=== PATIENT | male | born 1965 | race Caucasian/White ===

== ENCOUNTER 2017-06-07 09:33 | Inpatient (IN) | payer OTHER ==
[~2017-06-07] VITALS: Ht 188 cm; Wt 106.8 kg
[2017-06-07] MEDS ORDERED: ONDANSETRON INJ 2 MG/ML 2 ML VIAL IV STA (10:07)
[2017-06-07] MEDS ORDERED: SODIUM CHLORIDE 0.9% 1000ML 2,000 ML IV STA (10:07)
[2017-06-07 10:32] LABS: BASO % 0.3 %; BASO ABS # 0.03 K/uL (0-0.2); COMPLETE YES; EOS % 1.2 %; IG% 0.4 %; LYMPH % 7.4 %; LYMPH ABS # 0.66 K/uL (1.2-3.4); MEAN CELL VOLUME 82.6 fL (80-100); MEAN CORPUSCULAR HEMOGLOBIN 28.4 pg (25-34); MEAN CORPUSCULAR HGB CONC 34.3 g/dl (32-36); MEAN PLATELET VOLUME 10.2 fL (7.4-10.4); MONO % 13.2 %; NEUT % 77.5 %; PLATELET COUNT 219 K/uL (130-400); RED BLOOD COUNT 5.57 M/uL (4.7-6.1); WHITE BLOOD COUNT 8.91 K/uL (4.8-10.8)
[2017-06-07 10:48] LABS: CALCIUM 9.2 mg/dl (8.5-10.1); CREATININE 1.1 mg/dl (0.60-1.40); POTASSIUM 3.4 mmol/L (3.5-5.1)
[2017-06-07] MEDS ORDERED: OPTIRAY 320 IV PRN (11:00)
--- NOTE | 2017-06-07 12:09 | DIAGNOSTIC IMAGING REPORT ---
CT OF THE ABDOMEN AND PELVIS WITH CONTRAST CLINICAL HISTORY: Persistent diarrhea and left upper quadrant abdominal pain. COMPARISON STUDY: CT of the abdomen and pelvis October 23, 2011. TECHNIQUE: Following IV administration of 93 mL of Optiray-320, axial images of the abdomen and pelvis were obtained from the lung bases to the proximal femurs. Images were reviewed in the axial, sagittal, and coronal planes. IV contrast was administered without complication. A dose lowering technique was utilized adhering to the principles of ALARA. CT DOSE: 1036.11 mGycm FINDINGS: The liver is normal with the exception of a 1.3 cm hypodense segment 5 lesion which is unchanged since exam of October 23, 2011. This is benign. The spleen, adrenal glands, kidneys and pancreas are normal. The caliber and wall thickness of small and large bowel are normal. The appendix is normal. The colon is mildly fluid-filled. There is no evidence for a bowel obstruction. Major vasculature of the abdomen and pelvis is patent. There is no lymphadenopathy or ascites. No suspicious skeletal lesions are present. There is no hydronephrosis. No peripancreatic or pericholecystic infiltration is present. Borderline splenomegaly is unchanged since prior CT. IMPRESSION: 1. Mildly fluid-filled colon suggestive of a diarrheal state. No bowel wall thickening. No bowel obstruction. Normal appendix. 2. Otherwise, unchanged appearance of the abdomen and pelvis and CT of October 23, 2011, as described above. Electronically signed by: Tong Mujica M.D. 06/07/2017 12:07 PM Dictated Date/Time: 06/07/2017 12:01 PM
[2017-06-07] MEDS ORDERED: METRONIDAZOLE 500MG / 100ML NSS IV STA (14:08)
[2017-06-07 14:21] LABS: URINE APPEARANCE CLEAR (CLEAR); URINE BILIRUBIN NEG (NEG); URINE COLOR YELLOW; URINE EPITHELIAL CELL AUTO 0-5 /lpf (0-5); URINE NITRITE NEG (NEG); URINE SPECIFIC GRAVITY > 1.045 (1.000-1.030); UROBILINOGEN NEG (NEG); ZZUR CULT IF INDIC CLEAN CATCH NO
[2017-06-07 14:22] LABS: MANUAL MICROSCOPIC REQUIRED? NO; REVIEW REQ? NO
--- NOTE | 2017-06-07 14:25 | Gastrointestinal Consultation ---
Gastrointestinal Consultation Date of Consultation: Jun 07, 2017 Consulting Physician: Mercedes Reason for Consultation: abdominal pain, transamnitis, diarrhea History of Present Illness Patient is a 52 year old male w/ PMH significant for lyme disease who presented to the ED for evaluation of abdominal pain and diarrhea. Pt was seen and evaluated w/ Dr. Long in the ED. Family is at bedside. Pt tells me on he was evaluated by his PCP for suspected lyme disease. He was having joint pain with fever and chills and was concerned that he had lyme disease again. He tells me he has had this diagnosed many times in the past, most recently 20 years ago. He does recall at least 4 ticks this season but he does not think they were attached for very long. PCP started him on a 28 day course of BID doxycycline without any resolution of his symptoms. Diarrhea and abdominal pain started on 06/01/17 and he was instructed to stop his doxycycline on 06/05/17. Currently still having lower abdominal pain and cramping. He is moving his bowels 6-7 times daily, no black or bloody stools. He is still having fever, chills, muscle aches and joint pain. No sick contacts. Does not drink well water. Works as a [employer] teacher. No sick contacts. He was scheduled to have a screening colonoscopy this month. CT Mildly fluid-filled colon suggestive of a diarrheal state. No bowel wall thickening. No bowel obstruction. Normal appendix. Otherwise, unchanged appearance of the abdomen and pelvis and CT of October 23, 2011, as described above. Past Medical/Surgical History abdominal pain, muscle aches, fever, chills, joint pain, diarrhea Past Medical History: lyme disease Past Surgical History: vasectomy Social History Smoking Status: Never Smoker Allergies Coded Allergies: Sulfamethoxazole w/Trimethoprim (Unverified Allergy, Intermediate, BLISTERS IN "PRIVATE AREA", 06/07/17) Current Medications Home Meds and Scripts Medications Dose Route/Sig Max Daily Dose Days Date Category No Active Prescriptions or Reported Medications Rx Review of Systems Constitutional: + fever, + chills Respiratory: + cough Cardiac: + chest pain Abdomen: + pain, + diarrhea, No nausea, No vomiting Physical Exam Date Time Temp Pulse Resp B/P (MAP) Pulse Ox O2 Delivery O2 Flow Rate FiO2 06/07/17 13:48 71 18 119/56 98 Room Air 06/07/17 12:21 70 18 116/59 97 Room Air 06/07/17 11:18 82 18 108/49 98 Room Air 06/07/17 09:54 37.2 97 18 144/65 96 Room Air General Appearance: + mild distress Eyes: PERRL ENT: hearing grossly normal Neck: supple Respiratory/Chest: lungs clear, normal breath sounds Cardiovascular: regular rate, rhythm Abdomen: normal bowel sounds, soft, no organomegaly, + tenderness Neurologic/Psych: alert, normal mood/affect, oriented x 3 Skin: normal color Laboratory Results Last 24 Hours Test 06/07/17 10:15 06/07/17 10:18 06/07/17 14:10 White Blood Count 8.91 K/uL Red Blood Count 5.57 M/uL Hemoglobin 15.8 g/dL Hematocrit 46.0 % Mean Corpuscular Volume 82.6 fL Mean Corpuscular Hemoglobin 28.4 pg Mean Corpuscular Hemoglobin Concent 34.3 g/dl Platelet Count 219 K/uL Mean Platelet Volume 10.2 fL Neutrophils (%) (Auto) 77.5 % Lymphocytes (%) (Auto) 7.4 % Monocytes (%) (Auto) 13.2 % Eosinophils (%) (Auto) 1.2 % Basophils (%) (Auto) 0.3 % Neutrophils # (Auto) 6.89 K/uL Lymphocytes # (Auto) 0.66 K/uL Monocytes # (Auto) 1.18 K/uL Eosinophils # (Auto) 0.11 K/uL Basophils # (Auto) 0.03 K/uL RDW Standard Deviation 37.9 fL RDW Coefficient of Variation 12.6 % Immature Granulocyte % (Auto) 0.4 % Immature Granulocyte # (Auto) 0.04 K/uL Sodium Level 140 mmol/L Potassium Level 3.4 mmol/L Chloride Level 105 mmol/L Carbon Dioxide Level 29 mmol/L Anion Gap 6.0 mmol/L Blood Urea Nitrogen 13 mg/dl Creatinine 1.10 mg/dl Est Creatinine Clear Calc Drug Dose 102.8 ml/min Estimated GFR () 90.2 Estimated GFR (Non- 77.9 BUN/Creatinine Ratio 12.0 Random Glucose 101 mg/dl Calcium Level 9.2 mg/dl Total Bilirubin 2.2 mg/dl Direct Bilirubin 0.8 mg/dl Aspartate Amino Transf (AST/SGOT) 157 U/L Alanine Aminotransferase (ALT/SGPT) 159 U/L Alkaline Phosphatase 131 U/L Total Protein 7.3 gm/dl Albumin 3.5 gm/dl Lipase 107 U/L Impression Patient is a 52 year old male with suspected lyme disease started on BID doxycycline on 05/26/17 who acutely developed abdominal pain and cramping and diarrhea prior to a trip to [place]. PCP had advised ED evlauation as he was concerned for c.diff - c.diff negative in the ED. He has acutely elevated transaminases as well. Plan - Stool culture - Stool c.diff - Stool O&P - CMP daily - PPI once daily - Clear liquid diet as tolerated - IVF hydration - antiemetics PRN - hold on antidiarrheal agents - Acute hepatitis panel - if negative and LFTs aren't trending down will need additional work up - ETOH and tylenol level - RUQ US - Consider lyme titers - Will need his outpatient colonoscopy for colon CA screening Call with any questions - GI to follow ATTESTATION: I have performed a history and physical examination of this patient and reviewed the electronic record. Specifically, on physical examination there is mild diffuse abdominal tenderness. I have discussed the case with RADU Castro. The above note reflects my findings, conclusions, and recommendations. Gregorio Long MD
--- NOTE | 2017-06-07 14:47 | DIAGNOSTIC IMAGING REPORT ---
ABDOMINAL ULTRASOUND, RIGHT UPPER QUADRANT HISTORY: Elevated liver function tests. COMPARISON: CT of the abdomen and pelvis June 07, 2017. FINDINGS: Liver morphology is normal. A 1.7 cm echogenic segment 5 hepatic lesion adjacent to the gallbladder is unchanged since exam of October 23, 2011. This reflects a hemangioma. No additional hepatic lesions are identified and there is no biliary ductal dilatation. No gallstones are identified. There is no gallbladder wall thickening. Pancreatic body is normal. Head and tail are obscured by bowel gas. There is no right hydronephrosis. IMPRESSION: 1. No gallstones or biliary ductal dilatation. 2. 1.7 cm right hepatic lobe hemangioma. Electronically signed by: Tong Mujica M.D. 06/07/2017 2:46 PM Dictated Date/Time: 06/07/2017 2:44 PM
--- NOTE | 2017-06-07 14:54 | EMERGENCY ROOM VISIT NOTE ---
History Report prepared by Ronel: Caleb Cooper Under the Supervision of: Dr. Dov Stephen D.O. First contact with patient: 09:52 Chief Complaint: DIARRHEA Stated Complaint: SEVERE DIARRHEA History of Present Illness The patient is a 52 year old male who presents to the Emergency Room with complaints of persistent diarrhea that began last Wednesday, 6 days prior to this visit. The patient states that he has been experiencing roughly 6-8 bouts of diarrhea per day for the past 6 days. The diarrhea has lessened in frequency over the past three days because he states that he is not eating as much as usual. He is also complaining of "dull" left lower quadrant abdominal pain.The patient notes that he was traveling/vacationing in [place] last week as well. He denies drinking out of streams or eating any raw fish/meets. 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 The patient was also on Doxycycline recently for Lyme's disease. He stopped this medication last Wednesday, the same day his symptoms began. He discussed his symptoms with his PCP today who was concerned for C-diff. 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 The patient denies headache, change in vision, fevers, chest pain, shortness of breath, pain with urination, and melena. Source of History: patient Onset: 6 days prior to arrival. Position: other (GI ) Quality: other (Diarrhea) Timing: other (Persistent) Associated Symptoms: + abdominal pain Review of Systems See HPI for pertinent positives & negatives. A total of 10 systems reviewed and were otherwise negative. Past Medical & Surgical Medical Problems: (1) Giardia (2) Lyme disease Family History No pertinent family histories recorded Social History Drug Use: none Marital Status: Housing Status: lives with significant other Occupation Status: employed Current/Historical Medications No Active Prescriptions or Reported Meds Allergies Coded Allergies: Sulfamethoxazole w/Trimethoprim (Unverified Allergy, Intermediate, BLISTERS IN "PRIVATE AREA", 06/07/17) Physical Exam Vital Signs Date Time Temp Pulse Resp B/P (MAP) Pulse Ox O2 Delivery O2 Flow Rate FiO2 06/07/17 13:48 71 18 119/56 98 Room Air 06/07/17 12:21 70 18 116/59 97 Room Air 06/07/17 11:18 82 18 108/49 98 Room Air 06/07/17 09:54 37.2 97 18 144/65 96 Room Air Physical Exam GENERAL: Laying in bed, alert, disheveled, well nourished, no distress, non- toxic EYE EXAM: normal conjunctiva OROPHARYNX: no exudate, no erythema, lips, buccal mucosa, and tongue normal and mucous membranes are moist NECK: supple, no nuchal rigidity, no adenopathy, non-tender LUNGS: Clear to auscultation. Normal chest wall mechanics HEART: no murmurs, S1 normal and S2 normal ABDOMEN: abdomen soft, with faint left upper quadrant tenderness, normo-active bowel sounds, no masses, no rebound or guarding. BACK: Back is symmetrical on inspection and there is no deformity, no midline tenderness, no CVA tenderness. SKIN: no rashes and no bruising UPPER EXTREMITIES: upper extremities are grossly normal. LOWER EXTREMITIES: No pitting edema. NEURO EXAM: Normal sensorium, cranial nerves II-XII grossly intact, normal speech, no gross weakness of arms, no gross weakness of legs. Medical Decision & Procedures ER Provider Diagnostic Interpretation: Radiology results as stated below per my review and the radiologist's interpretation: CT OF THE ABDOMEN AND PELVIS WITH CONTRAST CLINICAL HISTORY: Persistent diarrhea and left upper quadrant abdominal pain. COMPARISON STUDY: CT of the abdomen and pelvis October 23, 2011. TECHNIQUE: Following IV administration of 93 mL of Optiray-320, axial images of the abdomen and pelvis were obtained from the lung bases to the proximal femurs. Images were reviewed in the axial, sagittal, and coronal planes. IV contrast was administered without complication. A dose lowering technique was utilized adhering to the principles of ALARA. CT DOSE: 1036.11 mGycm FINDINGS: The liver is normal with the exception of a 1.3 cm hypodense segment 5 lesion which is unchanged since exam of October 23, 2011. This is benign. The spleen, adrenal glands, kidneys and pancreas are normal. The caliber and wall thickness of small and large bowel are normal. The appendix is normal. The colon is mildly fluid-filled. There is no evidence for a bowel obstruction. Major vasculature of the abdomen and pelvis is patent. There is no lymphadenopathy or ascites. No suspicious skeletal lesions are present. There is no hydronephrosis. No peripancreatic or pericholecystic infiltration is present. Borderline splenomegaly is unchanged since prior CT. IMPRESSION: 1. Mildly fluid-filled colon suggestive of a diarrheal state. No bowel wall thickening. No bowel obstruction. Normal appendix. 2. Otherwise, unchanged appearance of the abdomen and pelvis and CT of October 23, 2011, as described above. Electronically signed by: Tong Mujica M.D. 06/07/2017 12:07 PM Dictated Date/Time: 06/07/2017 12:01 PM Laboratory Results 06/07/17 10:15 Red Blood Count 5.57, Mean Corpuscular Volume 82.6, Mean Corpuscular Hemoglobin 28.4, Mean Corpuscular Hemoglobin Concent 34.3, Mean Platelet Volume 10.2, Neutrophils (%) (Auto) 77.5, Lymphocytes (%) (Auto) 7.4, Monocytes (%) (Auto) 13.2, Eosinophils (%) (Auto) 1.2, Basophils (%) (Auto) 0.3, Neutrophils # (Auto ) 6.89, Lymphocytes # (Auto) 0.66, Monocytes # (Auto) 1.18, Eosinophils # (Auto ) 0.11, Basophils # (Auto) 0.03 06/07/17 10:15 Test 06/07/17 10:15 06/07/17 10:18 06/07/17 14:10 White Blood Count 8.91 K/uL (4.8-10.8) Red Blood Count 5.57 M/uL (4.7-6.1) Hemoglobin 15.8 g/dL (14.0-18.0) Hematocrit 46.0 % (42-52) Mean Corpuscular Volume 82.6 fL (80-100) Mean Corpuscular Hemoglobin 28.4 pg (25-34) Mean Corpuscular Hemoglobin Concent 34.3 g/dl (32-36) Platelet Count 219 K/uL (130-400) Mean Platelet Volume 10.2 fL (7.4-10.4) Neutrophils (%) (Auto) 77.5 % Lymphocytes (%) (Auto) 7.4 % Monocytes (%) (Auto) 13.2 % Eosinophils (%) (Auto) 1.2 % Basophils (%) (Auto) 0.3 % Neutrophils # (Auto) 6.89 K/uL (1.4-6.5) Lymphocytes # (Auto) 0.66 K/uL (1.2-3.4) Monocytes # (Auto) 1.18 K/uL (0.11-0.59) Eosinophils # (Auto) 0.11 K/uL (0-0.5) Basophils # (Auto) 0.03 K/uL (0-0.2) RDW Standard Deviation 37.9 fL (36.4-46.3) RDW Coefficient of Variation 12.6 % (11.5-14.5) Immature Granulocyte % (Auto) 0.4 % Immature Granulocyte # (Auto) 0.04 K/uL (0.00-0.02) Anion Gap 6.0 mmol/L (3-11) Est Creatinine Clear Calc Drug Dose 102.8 ml/min Estimated GFR () 90.2 Estimated GFR (Non- 77.9 BUN/Creatinine Ratio 12.0 (10-20) Calcium Level 9.2 mg/dl (8.5-10.1) Total Bilirubin 2.2 mg/dl (0.2-1) Direct Bilirubin 0.8 mg/dl (0-0.2) Aspartate Amino Transf (AST/SGOT) 157 U/L (15-37) Alanine Aminotransferase (ALT/SGPT) 159 U/L (12-78) Alkaline Phosphatase 131 U/L (45-117) Total Protein 7.3 gm/dl (6.4-8.2) Albumin 3.5 gm/dl (3.4-5.0) Lipase 107 U/L (73-393) Urine Color YELLOW Urine Appearance CLEAR (CLEAR) Urine pH 5.0 (4.5-7.5) Urine Specific [place] > 1.045 (1.000-1.030) Urine Protein NEG (NEG) Urine Glucose (UA) NEG (NEG) Urine Ketones TRACE (NEG) Urine Occult Blood NEG (NEG) Urine Nitrite NEG (NEG) Urine Bilirubin NEG (NEG) Urine Urobilinogen NEG (NEG) Urine Leukocyte Esterase NEG (NEG) Urine WBC (Auto) 1-5 /hpf (0-5) Urine RBC (Auto) 0-4 /hpf (0-4) Urine Hyaline Casts (Auto) 0 /lpf (0-5) Urine Epithelial Cells (Auto) 0-5 /lpf (0-5) Urine Bacteria (Auto) NEG (NEG) Date/Time Source Procedure Growth Status 06/07/17 10:18 Stool C.difficile Toxin B Gene (PCR) - Final No C. difficile toxin B gene detected Complete Laboratory results per my review. Medications Administered Medications (Trade) Dose Ordered Sig/Imelda Route Start Time Stop Time Status Last Admin Dose Admin Sodium Chloride 2,000 ml @ 999 mls/hr Q2H1M STAT IV 06/07/17 10:07 06/07/17 12:07 DC 06/07/17 10:23 999 MLS/HR Ondansetron HCl (Zofran Inj) 4 mg NOW STAT IV 06/07/17 10:07 06/07/17 10:08 DC 06/07/17 10:24 4 MG ED Course ED COURSE: Vital signs were reviewed and showed normal vitals The patients medical record was reviewed The above diagnostic studies were performed and reviewed. ED treatments and interventions as stated above. 0956: The patient was evaluated in room B11B. A complete history and physical examination was performed. 1007: Ordered Zofran 4 mg IV, Sodium Chloride 2000 mL @ 999 mL/hr IV. 1105: The patient gave a stool sample at this time 1231: I discussed the case with Dr. Samson ZAPATA at this time. She will come to the department to evaluate the patient. After her evaluation, she suggests admission for the patient and agrees with IV Flagyl. 1408: Ordered Metronidazole 500 mg IV. 1412: I discussed the case with Dr. Kristen Lara Hospitalist at this time. She will evaluate the patient for further treatment. 1419: Upon reevaluation, the patient is resting in bed.I discussed my findings with the patient and he understands and agrees with the treatment plan. Based on the patients age, coexisting illnesses, exam and lab findings the decision to treat as an inpatient was made. The patient remained stable while under my care. The patient will be evaluated for further management. Medical Decision Differential diagnoses includes but is not limited to gastritis, peptic ulcer disease, GERD, gallbladder disease, pancreatitis, small bowel obstruction, acute coronary syndrome, pericarditis, ischemic bowel, irritable bowel disease, irritable bowel syndrome, appendicitis, diverticulitis, malignancy, hernia, urinary tract infection, torsion, perforation, trauma, infectious. Patient is a 52-year-old male who presents the ER with persistent diarrhea which has been present since last Wednesday. Patient has mid left quadrant abdominal pain. No vomiting. Persistent diarrhea. 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 History of recent antibiotics. C. difficile was negative. Labs show an elevated transaminitis in the 160s and bilirubin of 2.2. With his history of Giardia and working streams is given IV Flagyl. He was updated bedside. He declined pain medications. He is given 2 L normal saline. Evaluated by GI folllowing a and negative CT who recommended ultrasound of the right upper quadrant. Ultrasound was negative. Patient family were updated at bedside. GI recommended admission which I agreed with. Patient was admitted for a further workup. Medication Reconcilliation Current Medication List: was personally reviewed by me Blood Pressure Screening Patient's blood pressure: Normal blood pressure Consults Time Called: 1225 Consulting Physician: Dr. Samson ZAPATA Returned Call: [phone] I discussed the case with Dr. Samson ZAPATA at this time. She will come to the department to evaluate the patient. After her evaluation, she suggests admission for the patient and agrees with IV Flagyl. Additional Consults: Time Called: 1408 Consulted Physician: Dr. Garret Lara Hospitalist Returned Call: [phone] Additional Comments: I discussed the case with Dr. Garret Parada at this time. She will evaluate the patient for further treatment. Impression Primary Impression: Diarrhea Additional Impressions: Transaminitis Elevated bilirubin Scribe Attestation The scribe's documentation has been prepared under my direction and personally reviewed by me in its entirety. I confirm that the note above accurately reflects all work, treatment, procedures, and medical decision making performed by me. Departure Information Dispostion Being Evaluated By Hospitalist Prescriptions No Active Prescriptions or Reported Meds Referrals Bonilla Brown PA-C (PCP) Patient Instructions My [facility] Problem Qualifiers Primary Impression: Diarrhea Diarrhea type: unspecified type Qualified Codes: R19.7 - Diarrhea, unspecified
[2017-06-07 16:15] VITALS: BP 118/72; PULSE 72; TEMP 36.8; O2SAT 95; Ht 188 cm; Wt 106.8 kg
[2017-06-07] MEDS ORDERED: MULTTAB58 PO (16:39)
[2017-06-07] MEDS ORDERED: TRAMADOL HCL 50 MG TAB PO PRN (16:45)
[2017-06-07] MEDS ORDERED: ONDANSETRON INJ 2 MG/ML 2 ML VIAL IV PRN (16:45)
[2017-06-07] MEDS ORDERED: POTASSIUM CHLORIDE 20 MEQ TABCR PO ONE (17:00)
[2017-06-07] MEDS: SODIUM CHLORIDE 0.9% 1000ML 1,000 ML IV SCH (17:26)
--- NOTE | 2017-06-07 20:07 | History and Physical ---
History & Physical Date & Time of Service: Jun 07, 2017 at 16:42 Chief Complaint: Diarrhea, Transaminitis Primary Care Physician: Bonilla Brown PA-C History of Present Illness Source: patient, spouse, clinic records, hospital records 52 year old male with no significant PMH presents to the Emergency Room with complaints of watery diarrhea that has been going for about 6 days. Pt said that the diarrhea started after he saw his PCP for symptoms that he feels that was similar for lyme dx because in the last few months he found so many ticks on him. His PCP started him on doxycycline. He said that when the diarrhea occurred he stopped it last Wednesday. He said that he discussed his symptoms with his PCP today that advised him to come to ER to r/o C-diff. Pt said that he had doxy in the past with no problems. He said that he has been having about 6 to 8 episodes of watery diarrhea daily. he said that the diarrhea seems to get worst and associated with left lower quadrant abdominal pain.Pain describes as crampy, radiating across the abdomen and grade about 7/10. He has some chills , fever and joint pain. he said that he has not been eating much. Last week he was on Vacation in [place] and denies drinking any water from the well/ river, no camping. He did have Giardia in 2010 and notes that this episode feels very similar.Denies any headache, chest pain, shortness of breath, palpitation. Past Medical/Surgical History Medical Problems: (1) Giardia Status: Resolved (2) Lyme disease Status: Resolved Social History Smoking Status: Never Smoker Drug Use: none Marital Status: Occupational Status: employed Allergies Coded Allergies: Sulfamethoxazole w/Trimethoprim (Unverified Allergy, Intermediate, BLISTERS IN "PRIVATE AREA", 06/07/17) Home Medications Scheduled Multiple Vitamin (Multivitamin), 1 TAB PO DAILY Review of Systems Constitutional: + fever, + chills, + weakness Eyes: No worsening of vision, No redness ENT: No hearing loss, No nasal symptoms Respiratory: No cough, No sputum, No wheezing, No shortness of breath Cardiovascular: No chest pain, No orthopnea, No claudication Abdomen: + pain, + diarrhea Musculoskeletal: + joint pain, No calf pain Genitourinary - Male: No hematuria, No dysuria Neurologic: No memory loss, No paralysis, No vertigo Psychiatric: No anxiety, No substance abuse Endocrine: No excessive thirst, No excessive urination Hematologic / Lymphatic: No swollen lymph nodes, No night sweats Integumentary: No rash, No itch Physical Exam Vital Signs Date Time Temp Pulse Resp B/P (MAP) Pulse Ox O2 Delivery O2 Flow Rate FiO2 06/07/17 16:01 37.2 78 18 108/58 96 06/07/17 15:15 78 18 108/58 96 Room Air 06/07/17 13:48 71 18 119/56 98 Room Air 06/07/17 12:21 70 18 116/59 97 Room Air 06/07/17 11:18 82 18 108/49 98 Room Air 06/07/17 09:54 37.2 97 18 144/65 96 Room Air General Appearance: WD/WN, no apparent distress Head: normocephalic, atraumatic Eyes: normal inspection, PERRL, EOMI ENT: hearing grossly normal Neck: supple, no JVD Respiratory/Chest: lungs clear, no respiratory distress, no accessory muscle use Cardiovascular: regular rate, rhythm, no JVD, no murmur Abdomen/GI: normal bowel sounds, + tenderness Back: normal inspection, no CVA tenderness Extremities/Musculoskelatal: no calf tenderness, no pedal edema Neurologic/Psych: no motor/sensory deficits, alert, oriented x 3 Skin: warm/dry, no rash Diagnostics Laboratory Results Results Past 24 Hours Test 06/07/17 10:15 06/07/17 10:18 06/07/17 14:10 Range/Units White Blood Count 8.91 4.8-10.8 K/uL Red Blood Count 5.57 4.7-6.1 M/uL Hemoglobin 15.8 14.0-18.0 g/dL Hematocrit 46.0 42-52 % Mean Corpuscular Volume 82.6 80-100 fL Mean Corpuscular Hemoglobin 28.4 25-34 pg Mean Corpuscular Hemoglobin Concent 34.3 32-36 g/dl Platelet Count 219 130-400 K/uL Mean Platelet Volume 10.2 7.4-10.4 fL Neutrophils (%) (Auto) 77.5 % Lymphocytes (%) (Auto) 7.4 % Monocytes (%) (Auto) 13.2 % Eosinophils (%) (Auto) 1.2 % Basophils (%) (Auto) 0.3 % Neutrophils # (Auto) 6.89 1.4-6.5 K/uL Lymphocytes # (Auto) 0.66 1.2-3.4 K/uL Monocytes # (Auto) 1.18 0.11-0.59 K/uL Eosinophils # (Auto) 0.11 0-0.5 K/uL Basophils # (Auto) 0.03 0-0.2 K/uL RDW Standard Deviation 37.9 36.4-46.3 fL RDW Coefficient of Variation 12.6 11.5-14.5 % Immature Granulocyte % (Auto) 0.4 % Immature Granulocyte # (Auto) 0.04 0.00-0.02 K/uL Sodium Level 140 136-145 mmol/L Potassium Level 3.4 3.5-5.1 mmol/L Chloride Level 105 98-107 mmol/L Carbon Dioxide Level 29 21-32 mmol/L Anion Gap 6.0 3-11 mmol/L Blood Urea Nitrogen 13 7-18 mg/dl Creatinine 1.10 0.60-1.40 mg/dl Est Creatinine Clear Calc Drug Dose 102.8 ml/min Estimated GFR () 90.2 Estimated GFR (Non- 77.9 BUN/Creatinine Ratio 12.0 10-20 Random Glucose 101 70-99 mg/dl Calcium Level 9.2 8.5-10.1 mg/dl Total Bilirubin 2.2 0.2-1 mg/dl Direct Bilirubin 0.8 0-0.2 mg/dl Aspartate Amino Transf (AST/SGOT) 157 15-37 U/L Alanine Aminotransferase (ALT/SGPT) 159 12-78 U/L Alkaline Phosphatase 131 45-117 U/L Total Protein 7.3 6.4-8.2 gm/dl Albumin 3.5 3.4-5.0 gm/dl Lipase 107 73-393 U/L Urine Color YELLOW Urine Appearance CLEAR CLEAR Urine pH 5.0 4.5-7.5 Urine Specific [place] > 1.045 1.000-1.030 Urine Protein NEG NEG Urine Glucose (UA) NEG NEG Urine Ketones TRACE NEG Urine Occult Blood NEG NEG Urine Nitrite NEG NEG Urine Bilirubin NEG NEG Urine Urobilinogen NEG NEG Urine Leukocyte Esterase NEG NEG Urine WBC (Auto) 1-5 0-5 /hpf Urine RBC (Auto) 0-4 0-4 /hpf Urine Hyaline Casts (Auto) 0 0-5 /lpf Urine Epithelial Cells (Auto) 0-5 0-5 /lpf Urine Bacteria (Auto) NEG NEG Microbiology Results 06/07/17 C.difficile Toxin B Gene (PCR) - Final, Complete No C. difficile toxin B gene detected 06/07/17 Shiga Toxin Test, Received Pending 06/07/17 Stool Culture, Received Pending Diagnostic Radiology ABDOMINAL ULTRASOUND, RIGHT UPPER QUADRANT HISTORY: Elevated liver function tests. COMPARISON: CT of the abdomen and pelvis June 07, 2017. FINDINGS: Liver morphology is normal. A 1.7 cm echogenic segment 5 hepatic lesion adjacent to the gallbladder is unchanged since exam of October 23, 2011. This reflects a hemangioma. No additional hepatic lesions are identified and there is no biliary ductal dilatation. No gallstones are identified. There is no gallbladder wall thickening. Pancreatic body is normal. Head and tail are obscured by bowel gas. There is no right hydronephrosis. IMPRESSION: 1. No gallstones or biliary ductal dilatation. 2. 1.7 cm right hepatic lobe hemangioma. Electronically signed by: Tong Mujica M.D. 06/07/2017 2:46 PM Dictated Date/Time: 06/07/2017 2:44 PM [~ rep ct add3]] CT OF THE ABDOMEN AND PELVIS WITH CONTRAST CLINICAL HISTORY: Persistent diarrhea and left upper quadrant abdominal pain. COMPARISON STUDY: CT of the abdomen and pelvis October 23, 2011. TECHNIQUE: Following IV administration of 93 mL of Optiray-320, axial images of the abdomen and pelvis were obtained from the lung bases to the proximal femurs. Images were reviewed in the axial, sagittal, and coronal planes. IV contrast was administered without complication. A dose lowering technique was utilized adhering to the principles of ALARA. CT DOSE: 1036.11 mGycm FINDINGS: The liver is normal with the exception of a 1.3 cm hypodense segment 5 lesion which is unchanged since exam of October 23, 2011. This is benign. The spleen, adrenal glands, kidneys and pancreas are normal. The caliber and wall thickness of small and large bowel are normal. The appendix is normal. The colon is mildly fluid-filled. There is no evidence for a bowel obstruction. Major vasculature of the abdomen and pelvis is patent. There is no lymphadenopathy or ascites. No suspicious skeletal lesions are present. There is no hydronephrosis. No peripancreatic or pericholecystic infiltration is present. Borderline splenomegaly is unchanged since prior CT. IMPRESSION: 1. Mildly fluid-filled colon suggestive of a diarrheal state. No bowel wall thickening. No bowel obstruction. Normal appendix. 2. Otherwise, unchanged appearance of the abdomen and pelvis and CT of October 23, 2011, as described above. Electronically signed by: Tong Mujica M.D. 06/07/2017 12:07 PM Dictated Date/Time: 06/07/2017 12:01 PM Impression Assessment and Plan Severe Diarrhea Possible related to doxycycline GI side effects, has stopped it on 06/05 Stool for C-Diff negative Stool culture and Giardia antigen pending CT Abd showed Mildly fluid-filled colon suggestive of a diarrheal state. No bowel wall thickening. No bowel obstruction. Continue IVF tramadol for pain Clear liquid diet as tolerated Monitor electrolytes GI consulted Transaminitis AST/ALT -- 157/159 RUQ U/S showed no gallstones or biliary ductal dilatation and 1.7 cm right hepatic lobe hemangioma. Will monitor LFTs will check hepatitis panel avoid hepatotoxic agents Hypokalemia K 3.4 replaced monitor BMP Joint pain will check lyme titer DVT px on lovenox subq Code Status full code Level of Care Med/Surg Resuscitation Status FULL RESUSCITATION VTE Prophylaxis VTE Risk Assessment Done? Y/N: Yes Risk Level: Moderate Given or contraindicated: Enoxaparin (Lovenox)SQ
[2017-06-07 22:17] LABS: LYME DISEASE AB IGG NEG (NEG); LYME DISEASE AB IGM NEG (NEG)
[2017-06-08] VITALS: BP 113/66; PULSE 67; TEMP 37; O2SAT 98
[2017-06-08] MEDS: SODIUM CHLORIDE 0.9% 1000ML 1,000 ML IV SCH (03:05)
[2017-06-08 07:37] VITALS: BP 123/77; PULSE 59; TEMP 36.5; O2SAT 99
[2017-06-08 08:14] LABS: HEMATOCRIT 41.7 % (42-52); MEAN CELL VOLUME 83.4 fL (80-100); MEAN CORPUSCULAR HGB CONC 33.6 g/dl (32-36); MEAN PLATELET VOLUME 10.6 fL (7.4-10.4); PLATELET COUNT 184 K/uL (130-400); WHITE BLOOD COUNT 7.23 K/uL (4.8-10.8)
[2017-06-08 08:46] LABS: BUN/CREATININE RATIO 10.3 (10-20); CALCIUM 8.8 mg/dl (8.5-10.1); CREATININE 0.89 mg/dl (0.60-1.40); POTASSIUM 3.6 mmol/L (3.5-5.1)
[2017-06-08 08:51] LABS: ALB/GLOB RATIO 0.9 (0.9-2)
[2017-06-08] MEDS ORDERED: LOPERAMIDE HCL 2 MG CAP PO PRN (09:00)
[2017-06-08] MEDS ORDERED: ENOXAPARIN 40 MG/0.4 ML SYR SQ SCH (09:00)
--- NOTE | 2017-06-08 09:30 | Progress Note ---
Medicine Progress Note Date & Time of Visit: Jun 08, 2017 at 09:25. Subjective patient seen resting in bed, in good spirits states he feels better this morning had 5 BMs overnight, loose denies abdominal pain, nausea/vomiting would like diet to be advanced no other symptoms Objective Last 8 Hrs Date Time Temp Pulse Resp B/P (MAP) Pulse Ox O2 Delivery O2 Flow Rate FiO2 06/08/17 08:00 Room Air 06/08/17 07:37 36.5 59 18 123/77 (92) 99 Room Air Physical Exam: General- oriented x 3, not in distress, speaks in sentences with no effort Head- atraumatic Eyes- EOMI, anicteric ENT- oropharynx clear Neck- supple, no JVD, no adenopathy Lungs- clear breath sounds bilaterally Heart- regular rhythm; no murmur, normal rate Abdomen- normal bowel sounds, soft, nontender, non distended Extremities- no pretibial edema, no calf tenderness Neuro- alert, oriented x 3; no gross focal deficits Skin- warm & dry Laboratory Results: Last 24 Hours Test 06/07/17 10:15 06/07/17 10:18 06/07/17 14:10 06/07/17 20:24 White Blood Count 8.91 K/uL Red Blood Count 5.57 M/uL Hemoglobin 15.8 g/dL Hematocrit 46.0 % Mean Corpuscular Volume 82.6 fL Mean Corpuscular Hemoglobin 28.4 pg Mean Corpuscular Hemoglobin Concent 34.3 g/dl Platelet Count 219 K/uL Mean Platelet Volume 10.2 fL Neutrophils (%) (Auto) 77.5 % Lymphocytes (%) (Auto) 7.4 % Monocytes (%) (Auto) 13.2 % Eosinophils (%) (Auto) 1.2 % Basophils (%) (Auto) 0.3 % Neutrophils # (Auto) 6.89 K/uL Lymphocytes # (Auto) 0.66 K/uL Monocytes # (Auto) 1.18 K/uL Eosinophils # (Auto) 0.11 K/uL Basophils # (Auto) 0.03 K/uL RDW Standard Deviation 37.9 fL RDW Coefficient of Variation 12.6 % Immature Granulocyte % (Auto) 0.4 % Immature Granulocyte # (Auto) 0.04 K/uL Sodium Level 140 mmol/L Potassium Level 3.4 mmol/L Chloride Level 105 mmol/L Carbon Dioxide Level 29 mmol/L Anion Gap 6.0 mmol/L Blood Urea Nitrogen 13 mg/dl Creatinine 1.10 mg/dl Est Creatinine Clear Calc Drug Dose 102.8 ml/min Estimated GFR () 90.2 Estimated GFR (Non- 77.9 BUN/Creatinine Ratio 12.0 Random Glucose 101 mg/dl Calcium Level 9.2 mg/dl Total Bilirubin 2.2 mg/dl Direct Bilirubin 0.8 mg/dl Aspartate Amino Transf (AST/SGOT) 157 U/L Alanine Aminotransferase (ALT/SGPT) 159 U/L Alkaline Phosphatase 131 U/L Total Protein 7.3 gm/dl Albumin 3.5 gm/dl Lipase 107 U/L Urine Color YELLOW Urine Appearance CLEAR Urine pH 5.0 Urine Specific [place] > 1.045 Urine Protein NEG Urine Glucose (UA) NEG Urine Ketones TRACE Urine Occult Blood NEG Urine Nitrite NEG Urine Bilirubin NEG Urine Urobilinogen NEG Urine Leukocyte Esterase NEG Urine WBC (Auto) 1-5 /hpf Urine RBC (Auto) 0-4 /hpf Urine Hyaline Casts (Auto) 0 /lpf Urine Epithelial Cells (Auto) 0-5 /lpf Urine Bacteria (Auto) NEG Lyme Disease IgG Antibody NEG Lyme Disease IgM Antibody NEG Hepatitis B Surface Antigen NEG Hepatitis C Antibody Equivocal Test 06/08/17 07:14 White Blood Count 7.23 K/uL Red Blood Count 5.00 M/uL Hemoglobin 14.0 g/dL Hematocrit 41.7 % Mean Corpuscular Volume 83.4 fL Mean Corpuscular Hemoglobin 28.0 pg Mean Corpuscular Hemoglobin Concent 33.6 g/dl RDW Standard Deviation 38.2 fL RDW Coefficient of Variation 12.6 % Platelet Count 184 K/uL Mean Platelet Volume 10.6 fL Prothrombin Time 11.0 SECONDS Prothromb Time International Ratio 1.0 Sodium Level 142 mmol/L Potassium Level 3.6 mmol/L Chloride Level 108 mmol/L Carbon Dioxide Level 27 mmol/L Anion Gap 7.0 mmol/L Blood Urea Nitrogen 9 mg/dl Creatinine 0.89 mg/dl Est Creatinine Clear Calc Drug Dose 129.3 ml/min Estimated GFR () 115.6 Estimated GFR (Non- 99.7 BUN/Creatinine Ratio 10.3 Random Glucose 81 mg/dl Calcium Level 8.8 mg/dl Total Bilirubin 1.0 mg/dl Aspartate Amino Transf (AST/SGOT) 65 U/L Alanine Aminotransferase (ALT/SGPT) 118 U/L Alkaline Phosphatase 106 U/L Total Protein 6.5 gm/dl Albumin 3.0 gm/dl Globulin 3.5 gm/dl Albumin/Globulin Ratio 0.9 Date/Time Source Procedure Growth Status 06/07/17 10:18 Stool C.difficile Toxin B Gene (PCR) - Final No C. difficile toxin B gene detected Complete 06/07/17 10:18 Stool Shiga Toxin Test Pending Received 06/07/17 10:18 Stool Stool Culture Pending Received Assessment & Plan Severe Diarrhea Possible related to doxycycline GI side effects, has stopped it on 06/05 CT Abd showed Mildly fluid-filled colon suggestive of a diarrheal state. No bowel wall thickening. No bowel obstruction. C diff negative Stool culture: negative Giardia pending Hep A pending GI consulted diet advanced to soft tolerating well diarrhea resolved requesting to go home d/c today, ff up with PCP in 3-5 days Loperamide PRN Outpatient Colonoscopy for Screening Transaminitis Equivocal Hep C Ab AST/ALT -- 157/159--> 65/118 RUQ U/S showed no gallstones or biliary ductal dilatation and 1.7 cm right hepatic lobe hemangioma. -- Hep A ab pending Hep B ab negative Hep C AB equivocal -- follow up LFT's in 1 week follow up Hep C RNA done as inpatient Hypokalemia resolved with PO K Joint pain Lyme titer negative DVT px on lovenox subq Code Status full code Dispo d/c home today ff up with PCP in 3-5 days Current Inpatient Medications: Current Inpatient Medications Medications (Trade) Dose Ordered Sig/Imelda Route Start Time Stop Time Status Last Admin Dose Admin Ioversol (Optiray 320) 125 ml UD PRN IV 06/07/17 11:00 06/11/17 10:59 Enoxaparin Sodium (Lovenox Inj) 40 mg QAM SQ 06/08/17 09:00 07/08/17 08:59 Ondansetron HCl (Zofran Inj) 4 mg Q6H PRN IV 06/07/17 16:45 07/07/17 16:44 Tramadol HCl (Ultram Tab) 50 mg Q8H PRN PO 06/07/17 16:45 07/07/17 16:44 Loperamide HCl (Imodium Cap) 2 mg UD PRN PO 06/08/17 09:00 07/08/17 08:59
--- NOTE | 2017-06-08 10:13 | Gastroenterology Progress Note ---
Progress Note Date of Service: Jun 08, 2017 Subjective Pt evaluation today including: conversation w/ patient, physical exam, chart review, lab review Pt seen and evaluated. No acute events overnight. His symptoms are 100% resolved and he is tolerating diet. He had 3 episodes of loose stools overnight. HCV antibody came back equivocal - RNA is pending. 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 He has never been checked for Hep C before. No history of drug use. No other known exposures. Workup otherwise negative to date. He wants to go home. Review of Systems Constitutional: No fever, No chills Respiratory: No cough, No shortness of breath Cardiac: No chest pain, No edema Abdomen: + diarrhea, No pain, No nausea, No vomiting, No constipation, No GI bleeding Medications Current Inpatient Medications Medications (Trade) Dose Ordered Sig/Imelda Route Start Time Stop Time Status Last Admin Dose Admin Ioversol (Optiray 320) 125 ml UD PRN IV 06/07/17 11:00 06/11/17 10:59 Enoxaparin Sodium (Lovenox Inj) 40 mg QAM SQ 06/08/17 09:00 07/08/17 08:59 Ondansetron HCl (Zofran Inj) 4 mg Q6H PRN IV 06/07/17 16:45 07/07/17 16:44 Tramadol HCl (Ultram Tab) 50 mg Q8H PRN PO 06/07/17 16:45 07/07/17 16:44 Loperamide HCl (Imodium Cap) 2 mg UD PRN PO 06/08/17 09:00 07/08/17 08:59 06/08/17 09:55 2 MG Objective Vital Signs Date Time Temp Pulse Resp B/P (MAP) Pulse Ox O2 Delivery O2 Flow Rate FiO2 06/08/17 08:00 Room Air 06/08/17 07:37 36.5 59 18 123/77 (92) 99 Room Air 06/08/17 00:12 Room Air 06/08/17 00:00 37.0 67 20 113/66 (82) 98 Room Air 06/07/17 16:15 36.8 72 18 118/72 95 Room Air 06/07/17 16:01 37.2 78 18 108/58 96 06/07/17 15:15 78 18 108/58 96 Room Air 06/07/17 13:48 71 18 119/56 98 Room Air 06/07/17 12:21 70 18 116/59 97 Room Air 06/07/17 11:18 82 18 108/49 98 Room Air Physical Exam General Appearance: no apparent distress Eyes: normal inspection ENT: hearing grossly normal Neck: supple Respiratory/Chest: normal breath sounds Cardiovascular: regular rate, rhythm Abdomen: normal bowel sounds, non tender, soft, no organomegaly Neurologic/Psych: alert, normal mood/affect, oriented x 3 Skin: normal color Laboratory Results Last 24 Hours Test 06/07/17 10:15 06/07/17 10:18 06/07/17 14:10 06/07/17 20:24 White Blood Count 8.91 K/uL Red Blood Count 5.57 M/uL Hemoglobin 15.8 g/dL Hematocrit 46.0 % Mean Corpuscular Volume 82.6 fL Mean Corpuscular Hemoglobin 28.4 pg Mean Corpuscular Hemoglobin Concent 34.3 g/dl Platelet Count 219 K/uL Mean Platelet Volume 10.2 fL Neutrophils (%) (Auto) 77.5 % Lymphocytes (%) (Auto) 7.4 % Monocytes (%) (Auto) 13.2 % Eosinophils (%) (Auto) 1.2 % Basophils (%) (Auto) 0.3 % Neutrophils # (Auto) 6.89 K/uL Lymphocytes # (Auto) 0.66 K/uL Monocytes # (Auto) 1.18 K/uL Eosinophils # (Auto) 0.11 K/uL Basophils # (Auto) 0.03 K/uL RDW Standard Deviation 37.9 fL RDW Coefficient of Variation 12.6 % Immature Granulocyte % (Auto) 0.4 % Immature Granulocyte # (Auto) 0.04 K/uL Sodium Level 140 mmol/L Potassium Level 3.4 mmol/L Chloride Level 105 mmol/L Carbon Dioxide Level 29 mmol/L Anion Gap 6.0 mmol/L Blood Urea Nitrogen 13 mg/dl Creatinine 1.10 mg/dl Est Creatinine Clear Calc Drug Dose 102.8 ml/min Estimated GFR () 90.2 Estimated GFR (Non- 77.9 BUN/Creatinine Ratio 12.0 Random Glucose 101 mg/dl Calcium Level 9.2 mg/dl Total Bilirubin 2.2 mg/dl Direct Bilirubin 0.8 mg/dl Aspartate Amino Transf (AST/SGOT) 157 U/L Alanine Aminotransferase (ALT/SGPT) 159 U/L Alkaline Phosphatase 131 U/L Total Protein 7.3 gm/dl Albumin 3.5 gm/dl Lipase 107 U/L Urine Color YELLOW Urine Appearance CLEAR Urine pH 5.0 Urine Specific [place] > 1.045 Urine Protein NEG Urine Glucose (UA) NEG Urine Ketones TRACE Urine Occult Blood NEG Urine Nitrite NEG Urine Bilirubin NEG Urine Urobilinogen NEG Urine Leukocyte Esterase NEG Urine WBC (Auto) 1-5 /hpf Urine RBC (Auto) 0-4 /hpf Urine Hyaline Casts (Auto) 0 /lpf Urine Epithelial Cells (Auto) 0-5 /lpf Urine Bacteria (Auto) NEG Lyme Disease IgG Antibody NEG Lyme Disease IgM Antibody NEG Hepatitis B Surface Antigen NEG Hepatitis C Antibody Equivocal Test 06/08/17 07:14 White Blood Count 7.23 K/uL Red Blood Count 5.00 M/uL Hemoglobin 14.0 g/dL Hematocrit 41.7 % Mean Corpuscular Volume 83.4 fL Mean Corpuscular Hemoglobin 28.0 pg Mean Corpuscular Hemoglobin Concent 33.6 g/dl RDW Standard Deviation 38.2 fL RDW Coefficient of Variation 12.6 % Platelet Count 184 K/uL Mean Platelet Volume 10.6 fL Prothrombin Time 11.0 SECONDS Prothromb Time International Ratio 1.0 Sodium Level 142 mmol/L Potassium Level 3.6 mmol/L Chloride Level 108 mmol/L Carbon Dioxide Level 27 mmol/L Anion Gap 7.0 mmol/L Blood Urea Nitrogen 9 mg/dl Creatinine 0.89 mg/dl Est Creatinine Clear Calc Drug Dose 129.3 ml/min Estimated GFR () 115.6 Estimated GFR (Non- 99.7 BUN/Creatinine Ratio 10.3 Random Glucose 81 mg/dl Calcium Level 8.8 mg/dl Total Bilirubin 1.0 mg/dl Aspartate Amino Transf (AST/SGOT) 65 U/L Alanine Aminotransferase (ALT/SGPT) 118 U/L Alkaline Phosphatase 106 U/L Total Protein 6.5 gm/dl Albumin 3.0 gm/dl Globulin 3.5 gm/dl Albumin/Globulin Ratio 0.9 Assessment and Plan Patient is a 52 year old male with suspected lyme disease started on BID doxycycline on 05/26/17 who acutely developed abdominal pain and cramping and diarrhea prior to a trip to [place]. PCP had advised ED evaluation as he was concerned for c.diff - c.diff negative in the ED. He has acutely elevated transaminases as well. Symptoms resolved overnight. LFTs still elevated. HCV antibody equivocal - RNA is pending Plan - Follow up stools when available - CMP daily - PPI once daily - Clear liquid diet as tolerated --> advance as tolerated - IVF hydration - antiemetics PRN - hold on antidiarrheal agents - Acute hepatitis panel - follow up RNA - Will need his outpatient colonoscopy for colon CA screening - Will need CMP within week of discharge GI to sign off. Call with questions or concerns.
[2017-06-08] MEDS ORDERED: IMD2X PO (14:27)
--- NOTE | 2017-06-08 14:32 | Discharge Instructions ---
Discharge Instructions Date of Service Jun 08, 2017. Admission Reason for Admission: Diarrhea, Transaminitis Discharge Discharge Diagnosis / Problem: Acute Gastroenteritis Discharge Goals Goal(s): Diagnostic testing, Therapeutic intervention Activity Recommendations Activity Limitations: resume your previous activity . Instructions / Follow-Up Instructions / Follow-Up CONTINUE TO ENSURE ADEQUATE DAILY FLUID INTAKE. PLEASE CALL PRIMARY CARE PHYSICIAN IMMEDIATELY IF WITH RECURRENCE OF SYMPTOMS, DIARRHEA, ABDOMINAL PAIN, NAUSEA/VOMITING, FEVER/CHILLS. FOLLOW UP WITH PRIMARY CARE PROVIDER RAVIN REEDER ON SUNDAY JUNE 11, 2017 AT 1:15PM. Current Hospital Diet Patient's current hospital diet: Low Fiber Diet Discharge Diet Recommended Diet: Low Fiber Diet (SOFT, LOW FIBER DIET UNTIL DIARRHEA RESOLVES) Pending Studies Studies pending at discharge: yes List of pending studies: REPEAT BLOOD WORK TO BE DONE BY PRIMARY CARE PHYSICIAN Medical Emergencies . Who to Call and When: Medical Emergencies: If at any time you feel your situation is an emergency, please call 911 immediately. . Non-Emergent Contact Non-Emergency issues call your: Primary Care Provider Call Non-Emergent contact if: you have a fever, your pain is not controlled, your pain is worsening, you have any medication questions . . "Provider Documentation" section prepared by Elieser Rutherford. . VTE Core Measure Inpt VTE Proph given/why not?: Enoxaparin (Lovenox)SQ
[2017-06-08 14:34] VITALS: BP 123/77; PULSE 59; TEMP 36.5; O2SAT 99
[2017-06-08 20:15] LABS: O&P GIARDIA AG DETECTED (NOT DETECTED)
--- NOTE | 2017-06-09 20:42 | Discharge Summary ---
Discharge Summary Date of Service Jun 09, 2017. Discharge Summary Admission Date: Jun 07, 2017 at 15:00 Discharge Date: Jun 08, 2017 Discharge Disposition: Home Principal Diagnosis: Severe Diarrhea Secondary Diagnoses/Problems: Please refer to hospital course below. Procedures: CT OF THE ABDOMEN AND PELVIS WITH CONTRAST CLINICAL HISTORY: Persistent diarrhea and left upper quadrant abdominal pain. COMPARISON STUDY: CT of the abdomen and pelvis October 23, 2011. TECHNIQUE: Following IV administration of 93 mL of Optiray-320, axial images of the abdomen and pelvis were obtained from the lung bases to the proximal femurs. Images were reviewed in the axial, sagittal, and coronal planes. IV contrast was administered without complication. A dose lowering technique was utilized adhering to the principles of ALARA. CT DOSE: 1036.11 mGycm FINDINGS: The liver is normal with the exception of a 1.3 cm hypodense segment 5 lesion which is unchanged since exam of October 23, 2011. This is benign. The spleen, adrenal glands, kidneys and pancreas are normal. The caliber and wall thickness of small and large bowel are normal. The appendix is normal. The colon is mildly fluid-filled. There is no evidence for a bowel obstruction. Major vasculature of the abdomen and pelvis is patent. There is no lymphadenopathy or ascites. No suspicious skeletal lesions are present. There is no hydronephrosis. No peripancreatic or pericholecystic infiltration is present. Borderline splenomegaly is unchanged since prior CT. IMPRESSION: 1. Mildly fluid-filled colon suggestive of a diarrheal state. No bowel wall thickening. No bowel obstruction. Normal appendix. 2. Otherwise, unchanged appearance of the abdomen and pelvis and CT of October 23, 2011, as described above. ABDOMINAL ULTRASOUND, RIGHT UPPER QUADRANT HISTORY: Elevated liver function tests. COMPARISON: CT of the abdomen and pelvis June 07, 2017. FINDINGS: Liver morphology is normal. A 1.7 cm echogenic segment 5 hepatic lesion adjacent to the gallbladder is unchanged since exam of October 23, 2011. This reflects a hemangioma. No additional hepatic lesions are identified and there is no biliary ductal dilatation. No gallstones are identified. There is no gallbladder wall thickening. Pancreatic body is normal. Head and tail are obscured by bowel gas. There is no right hydronephrosis. IMPRESSION: 1. No gallstones or biliary ductal dilatation. 2. 1.7 cm right hepatic lobe hemangioma. Consultations: Gastroenterology Pending Studies/Follow-Up: Please refer to hospital course below. Medication Reconciliation New Medications: Loperamide Hcl (Imodium) 2 Mg Cap 2 MG PO UD PRN for Diarrhea, #20 CAP take 1 cap by mouth after every loose bowel movement (do not take more than 8 caps per day) Continued Medications: Multiple Vitamin (Multivitamin) 1 Tab Tab 1 TAB PO DAILY, TAB Admission Information HPI (per Admitting provider): 52 year old male with no significant PMH presents to the Emergency Room with complaints of watery diarrhea that has been going for about 6 days. Pt said that the diarrhea started after he saw his PCP for symptoms that he feels that was similar for lyme dx because in the last few months he found so many ticks on him. His PCP started him on doxycycline. He said that when the diarrhea occurred he stopped it last Wednesday. He said that he discussed his symptoms with his PCP today that advised him to come to ER to r/o C-diff. Pt said that he had doxy in the past with no problems. He said that he has been having about 6 to 8 episodes of watery diarrhea daily. he said that the diarrhea seems to get worst and associated with left lower quadrant abdominal pain.Pain describes as crampy, radiating across the abdomen and grade about 7/10. He has some chills , fever and joint pain. he said that he has not been eating much. Last week he was on Vacation in [place] and denies drinking any water from the well/ river, no camping. He did have Giardia in 2010 and notes that this episode feels very similar.Denies any headache, chest pain, shortness of breath, palpitation. Physical Exam (per Admitting): General Appearance: WD/WN, no apparent distress Head: normocephalic, atraumatic Eyes: normal inspection, PERRL, EOMI ENT: hearing grossly normal Neck: supple, no JVD Respiratory/Chest: lungs clear, no respiratory distress, no accessory muscle use Cardiovascular: regular rate, rhythm, no JVD, no murmur Abdomen/GI: normal bowel sounds, + tenderness Back: normal inspection, no CVA tenderness Extremities/Musculoskelatal: no calf tenderness, no pedal edema Neurologic/Psych: no motor/sensory deficits, alert, oriented x 3 Skin: warm/dry, no rash Hospital Course Severe Diarrhea, likely from Giardia Infection CT Abd showed Mildly fluid-filled colon suggestive of a diarrheal state. No bowel wall thickening. No bowel obstruction. C diff negative Stool culture: negative Giardia antigen POSITIVE Hep A pending GI consulted diet advanced to soft tolerating well diarrhea resolved requesting to go home d/c today, ff up with PCP in 3-5 days Loperamide PRN Outpatient Colonoscopy for Screening -- patient called re: positive Giardia Flagyl 250mg TID x 7 days Rx sent to pharmacy, per GI recommendations discussed with patient Transaminitis Equivocal Hep C Ab AST/ALT -- 157/159--> 65/118 RUQ U/S showed no gallstones or biliary ductal dilatation and 1.7 cm right hepatic lobe hemangioma. -- Hep A ab pending Hep B ab negative Hep C AB equivocal -- follow up LFT's in 1 week follow up Hep C RNA done as inpatient Hypokalemia resolved with PO K Joint pain Lyme titer negative Dispo d/c home ff up with PCP in 3-5 days Total time spent on discharge = 40 minutes This includes examination of the patient, discharge planning, medication reconciliation, and communication with other providers. Discharge Instructions Discharge Instructions Date of Service Jun 08, 2017. Admission Reason for Admission: Diarrhea, Transaminitis Discharge Discharge Diagnosis / Problem: Acute Gastroenteritis Discharge Goals Goal(s): Diagnostic testing, Therapeutic intervention Activity Recommendations Activity Limitations: resume your previous activity . Instructions / Follow-Up Instructions / Follow-Up CONTINUE TO ENSURE ADEQUATE DAILY FLUID INTAKE. PLEASE CALL PRIMARY CARE PHYSICIAN IMMEDIATELY IF WITH RECURRENCE OF SYMPTOMS, DIARRHEA, ABDOMINAL PAIN, NAUSEA/VOMITING, FEVER/CHILLS. FOLLOW UP WITH PRIMARY CARE PROVIDER RAVIN REEDER ON SUNDAY JUNE 11, 2017 AT 1:15PM. Current Hospital Diet Patient's current hospital diet: Low Fiber Diet Discharge Diet Recommended Diet: Low Fiber Diet (SOFT, LOW FIBER DIET UNTIL DIARRHEA RESOLVES) Pending Studies Studies pending at discharge: yes List of pending studies: REPEAT BLOOD WORK TO BE DONE BY PRIMARY CARE PHYSICIAN Medical Emergencies . Who to Call and When: Medical Emergencies: If at any time you feel your situation is an emergency, please call 911 immediately. . Non-Emergent Contact Non-Emergency issues call your: Primary Care Provider Call Non-Emergent contact if: you have a fever, your pain is not controlled, your pain is worsening, you have any medication questions . . "Provider Documentation" section prepared by Elieser Rutherford. . VTE Core Measure Inpt VTE Proph given/why not?: Enoxaparin (Lovenox)SQ
[2017-06-10] MEDS ORDERED: METR250T PO (08:35)
[2017-06-11 08:29] LABS: HEPATITIS C RNA TMA QUAL Not detected
== END 2017-06-08 14:47 | disposition home or self-care (01) | DRG 395 ==
LOC: C.EDB 09:37 → C.MS2W 15:00 → ENRESERV 15:45
PROVIDERS: ADMIT Internal Medicine; ATTEND Internal Medicine
DX: K52.1 Toxic gastroenteritis and colitis (principal); R74.0 Nonspecific elevation of levels of transaminase and lactic acid dehydrogenase [LDH]; E87.6 Hypokalemia; T36.4X5A Adverse effect of tetracyclines, initial encounter; Z88.2 Allergy status to sulfonamides; Y92.009 Unspecified place in unspecified non-institutional (private) residence as the place of occurrence of the external cause

== ENCOUNTER → 2017-12-20 | Outpatient (CLI) | payer OTHER ==
[~2017-12-20] MED LIST: IMD2X PO; MULTTAB58 PO
[2017-12-20 15:41] LABS: BASO % 0.7 %; BASO ABS # 0.05 K/uL (0-0.2); EOS % 2.6 %; EOS ABS # 0.19 K/uL (0-0.5); HEMOGLOBIN 16.4 g/dL (14.0-18.0); IG# 0.03 K/uL (0.00-0.02); LYMPH % 25.3 %; LYMPH ABS # 1.88 K/uL (1.2-3.4); MEAN CELL VOLUME 85.9 fL (80-100); MEAN CORPUSCULAR HGB CONC 34.9 g/dl (32-36); MEAN PLATELET VOLUME 10.7 fL (7.4-10.4); MONO % 8.5 %; MONO ABS # 0.63 K/uL (0.11-0.59); NEUT % 62.5 %; NEUT ABS # 4.64 K/uL (1.4-6.5); PLATELET COUNT 178 K/uL (130-400); RED CELL DISTRIBUTION WIDTH CV 13.3 % (11.5-14.5); WHITE BLOOD COUNT 7.42 K/uL (4.8-10.8)
[2017-12-20 16:27] LABS: BLOOD UREA NITROGEN 21 mg/dl (7-18); CARBON DIOXIDE 30 mmol/L (21-32); CREATININE 1.01 mg/dl (0.60-1.40); GLUCOSE 80 mg/dl (70-99); SODIUM 140 mmol/L (136-145)
== END | disposition home or self-care (01) ==
LOC: C.LAB 15:16
PROVIDERS: ATTEND Orthopaedic Surgery
DX: M75.41 Impingement syndrome of right shoulder (principal)

== ENCOUNTER → 2018-01-06 | Day surgery (SDC) | payer OTHER ==
[2017-12-23 11:25] VITALS: Ht 188 cm; Wt 111.4 kg
[~2018-01-06] VITALS: Ht 188 cm; Wt 111.4 kg
[~2018-01-06] MED LIST changes: +ATROPINE SULFATE 0.1 MG/ML 5ML SYR IV PRN; +BUPIVACAINE 0.25% 30 ML VIAL ONE; +CEFAZOLIN 2000MG IV PUSH 15 ML IV SCH; +DEXAMETHASONE SOD INJ 4 MG/ML VIAL ONE; +EpHEDrine SULFATE INJ 50 MG/ML AMP IV PRN; +EpINEphrine INJ 1MG/ML AMP 1 MG/ML AMP ONE; +FENTANYL CITRATE INJ 50 MCG/1 ML 2 ML VIAL IV PRN; +FENTANYL CITRATE INJ 50 MCG/1 ML 2 ML VIAL ONE; +FLUMAZENIL 0.1 MG/1 ML 10 ML VIAL IV PRN; +HYDROmorphone INJ 2 MG/ML SYR/VIAL IV PRN; -IMD2X PO; +KETO10TA PO; +LABETALOL HCL IV 5 MG/ML 20ML IV PRN; +LACTATED RINGER'S 1000ML 1,000 ML IV SCH; +LIDOCAINE HCL 2% 2 ML VIAL (20MG/ML) ONE; +MEPERIDINE HCL 25 MG/ML CARP IV PRN; +METHYLPREDNISOLONE ACETATE 80 MG/ML VIAL ONE; +MIDAZOLAM HCL 1 MG/ML 2ML VIAL ONE; +NALOXONE HCL 0.4 MG/1 ML VIAL/CARP IV PRN; +ONDANSETRON INJ 2 MG/ML 2 ML VIAL IV PRN; +ONDANSETRON INJ 2 MG/ML 2 ML VIAL ONE; +OXYC-57 PO; +OXYCODONE/ACETAMINOPHEN 5-325 TAB PO PRN; +PHENYLEPHRINE 100MCG/ML 5ML SYR IV PRN; +PROPOFOL IV EMULSION 10 MG/ML 20 ML VIAL IV ONE; +ROPIVACAINE 0.5% 5 MG/ML 30 ML VIAL ONE; +SODIUM CHLORIDE 0.9% 1000ML 1,000 ML IV SCH
--- NOTE | 2018-01-06 08:56 | History & Physical Bridge Note ---
H&P Re-Evaluation Bridge Note: I have examined the patient, reviewed the History & Physical and in the interval since the performance of the History & Physical I have noted the following changes of clinical significance: No changes noted
--- NOTE | 2018-01-06 10:31 | [facility] Post Operative Brief Note ---
Immediate Operative Summary Operative Date Jan 06, 2018. Pre-Operative Diagnosis Right Shoulder Impingement Syndrome Post-Operative Diagnosis Same Procedure(s) Performed Right Shoulder Arthroscopy, Extensive Debridement, Lysis of Adhesions, Subacromial Decompression and Distal Clavicle Excision Surgeon Dr. David Rapp [employer] Assistant Surgeon(s) Veronica Gomes PA-C Estimated Blood Loss 5 cc Findings Consistent with Post-Op Diagnosis Specimens None Anesthesia Type General Regional Complication(s) none Disposition Disposition: Recovery Room / PACU
--- NOTE | 2018-01-06 10:43 | Discharge Instructions-SurgCtr ---
Discharge Instructions Date of Service Jan 06, 2018. Visit Reason for Visit: Right Shoulder Impingement Syndrome, Chronic Pain Discharge Discharge Diagnosis / Problem: right shoulder impingement syndrome, shoulder pain Discharge Goals Goal(s): Decrease discomfort, Therapeutic intervention Activity Recommendations Activity Limitations: per Instructions/Follow-up section Anesthesia . Post Anesthesia Instructions: If you have had General Anesthesia or IV Sedation: * Do not drive today. * Resume driving when surgeon permits. * Do not make important decisions or sign legal documents today. * Call surgeon for: 1. Temperature elevations greater than 101 degrees F. 2. Uncontrollable pain. 3. Excessive bleeding. 4. Persistent nausea and vomiting. 5. Medication intolerance (nausea, vomiting or rash). * For nausea and vomiting use only clear liquids such as: tea, soda, bouillon until nausea subsides, then gradually increase diet as tolerated. * If you have any concerns or questions, call your surgeon's office. If physician is unavailable and it is an emergency, call 911 or go to the nearest emergency room. . Instructions / Follow-Up Instructions / Follow-Up MEDICATIONS: * Resume previous medications unless instructed otherwise by your surgeon. * Always take pain medication on a full stomach or with food to avoid upset stomach. * Do not drink alcohol or drive while taking narcotics. * Ibuprofen or Tylenol may be taken if narcotic not needed. No ibuprofen while taking toradol SPECIAL CARE INSTRUCTIONS: __ None _x_ Keep extremity iced x 48 hours; apply ice 20-30 minutes 8-10 times/day. May remove at night. _x_ Sling today for comfort __24 hrs/day __ Remove at night __ Shoulder Immobilizer __ 24 hrs/day __ Remove at night _x_ Dressing __ Maintain until seen in office, may shower with plastic over site _x_ Remove dressings in 48 hours and then may shower _x_ Cover incisions with band-aids after showering __ Do not remove steri-strips Call physician if chills or temperature rises above 102 degrees or pain unrelieved by prescribed pain medications at . . follow up as scheduled Diet Recommendations Home Diet: resume previous diet Procedures Procedures Performed: Right Shoulder Arthroscopy, Extensive Debridement, Lysis of Adhesions, Subacromial Decompression and Distal Clavicle Excision Pending Studies Studies pending at discharge: no Medical Emergencies . Who to Call and When: Medical Emergencies: If at any time you feel your situation is an emergency, please call 911 immediately. . Non-Emergent Contact Non-Emergency issues call your: Surgeon . . "Provider Documentation" section prepared by Rick Gomes. .
--- NOTE | 2018-01-06 11:10 | Anesthesia Progress Nt - [facility] ---
Anesthesia Post Op Note Date & Time Jan 06, 2018 at 11:10 Vital Signs Pain Intensity: 0 Vital Signs Past 12 Hours Date Time Temp Pulse Resp B/P (MAP) Pulse Ox O2 Delivery O2 Flow Rate FiO2 01/06/18 10:38 36.2 50 16 108/70 98 Mask 6 01/06/18 09:36 0 01/06/18 09:31 74 28 98 01/06/18 09:31 75 01/06/18 09:30 68 19 121/72 96 01/06/18 09:30 68 01/06/18 09:29 74 49 98 01/06/18 09:29 73 01/06/18 09:25 111/60 01/06/18 09:24 52 19 98 01/06/18 09:24 52 01/06/18 09:23 55 01/06/18 09:23 57 21 98 01/06/18 09:20 110/61 01/06/18 09:18 56 19 98 01/06/18 09:18 54 01/06/18 09:17 49 8 98 01/06/18 09:17 50 01/06/18 09:16 50 13 99 01/06/18 09:16 50 01/06/18 09:15 121/85 01/06/18 09:14 53 17 99 01/06/18 09:14 52 01/06/18 09:13 118/73 01/06/18 09:12 57 01/06/18 09:12 54 0 01/06/18 09:07 0 01/06/18 09:02 50 0 01/06/18 07:35 36.5 57 18 115/83 (94) 97 Room Air Notes Mental Status: alert / awake / arousable, participated in evaluation Pt Amnestic to Procedure: Yes Nausea / Vomiting: adequately controlled Pain: adequately controlled Airway Patency, RR, SpO2: stable & adequate BP & HR: stable & adequate Hydration State: stable & adequate Anesthetic Complications: no major complications apparent
[2018-01-06 11:24] VITALS: TEMP 36.5
[2018-01-06 11:49] VITALS: BP 119/71; PULSE 53; O2SAT 100
--- NOTE | 2018-01-06 16:38 | OPERATIVE REPORT ---
DATE OF OPERATION: 01/06/2018 PREOPERATIVE DIAGNOSIS: Severe external impingement of the right shoulder with acromioclavicular joint arthritis and possible adhesive capsulitis. POSTOPERATIVE DIAGNOSIS: Severe external impingement, acromioclavicular joint arthritis of the right shoulder with adhesive capsulitis. PROCEDURE: Diagnostic arthroscopy with extensive debridement, lysis of adhesions, distal clavicle resection, acromioplasty. SURGEON: Dr. Talon Rapp. SUSTAINABLE COMMUNITIES DESIGNER: Nathaniel Gomes PA-C, whose assistance was necessary for helping with arthroscopic instrumentation and closure. ANESTHESIA: General with a right scalene nerve block. COMPLICATIONS: None. CONDITION: Stable to PACU. INDICATIONS: Ruddy is a pleasant 52-year-old male who has been having a 2-year history of right shoulder pain. He was out on an [place] when he began hurting. Over the last 2 years it has not gotten much better. MRI and clinical examination were diagnostic for severe external impingement, AC joint arthritis. He was also tight on physical examination. He elected to proceed with arthroscopy. DESCRIPTION OF PROCEDURE: On 01/06/2018, he arrived at [facility] for the above procedure. He was seen in preoperative holding and the operative extremity was identified and signed. He was given a preoperative antibiotic and a right interscalene nerve block. He was taken back to the operating room, laid on the table in supine position and put under general anesthesia. He was then put into the beachchair position. The right shoulder was prepped and draped in sterile fashion. A time-out was done and the patient and operative extremity was properly identified. On preoperative physical examination he had about 80 degrees of abduction and 40 degrees of external rotation. A gentle manipulation was done under anesthesia. This was to help facilitate insertion of the arthroscope. He did have definitive adhesive capsulitis. The scope was placed into a posterior portal. Diagnostic arthroscopy showed no cartilage damage to the humeral head or glenoid. There was significant redness of the rotator interval, the superior, middle and anterior inferior glenohumeral ligaments. An anterior portal was made. A shaver was used to start an extensive debridement of some of the intra-articular structures. The labrum was debrided back to stable margins. Any loose capsular fragments were debrided back. An ablator was then used to do a lysis of adhesions. The entire rotator interval was opened up down to the undersurface of the coracoid. The middle and anterior inferior glenohumeral ligaments were released. Care was taken not to disrupt the subscapularis or the axillary nerve. A shaver was used to remove any unstable soft tissue fragments. Significant time was spent removing red and inflamed capsule and synovial tissue. Once I was happy with the overall debridement arthroscopic instruments were removed from the shoulder and I did a gentle manipulation under anesthesia and was able to get full range of motion. The scope was then put in the subacromial space. A lateral portal was made. A shaver was used to do a complete subacromial and subdeltoid bursectomy. An ablator was then used to tease the coracoacromial ligament off the undersurface of the acromion. A 5-0 wm was used to complete an acromioplasty of a Bigliani type 2 acromion. A shaver was used to remove any excess debris and attention was turned to the rotator cuff. Through the anterior portal, a shaver and ablator were used to skeletonize the distal clavicle. A 5-0 wm was used to resect the distal 6 mm from the clavicle. Complete resection was checked under direct visualization. Final diagnostic arthroscopy showed no additional pathology. The scope was placed back into the glenohumeral joint and hemostasis was maintained. A spinal needle was placed for later injection. Arthroscopic instruments were removed from the shoulder. Portal sites were closed with 3-0 nylon. The joint was then injected with 80 mg of Depo-Medrol and 5 mL of Marcaine. He was then placed in a soft dressing and regular arm sling. He was then extubated, transferred to a [facility] and taken to the post-anesthesia care unit in stable condition. He tolerated the procedure well. I attest to the content of the Intraoperative Record and any orders documented therein. Any exception s are noted below.
== END | disposition home or self-care (01) ==
LOC: X.SURG 07:22
PROVIDERS: ATTEND Orthopaedic Surgery
DX: M75.41 Impingement syndrome of right shoulder (principal); M75.01 Adhesive capsulitis of right shoulder; M19.011 Primary osteoarthritis, right shoulder